=== PATIENT | male | born 1980 | race Caucasian/White ===

== ENCOUNTER 2018-10-24 13:23 | Outpatient (REF) | payer MEDICAID, SELFPAY ==
[2018-10-24 21:01] LABS: Anion Gap 9.1 mmol/L (3-11); BUN 13 mg/dL (7-18); CO2 26.9 mmol/L (21.0-32.0); CREATININE 1.02 mg/dL (0.70-1.30); Chloride 105 mmol/L (98-107); Glucose 86 mg/dL (70-100); Potassium 4.4 mmol/L (3.5-5.1); Sodium 141 mmol/L (136-145)
[2018-10-24 21:13] LABS: Cholesterol 204 mg/dL (50-200); HDL Cholesterol 52 mg/dL (40-60); LDL CHOLESTEROL 138 mg/dL (<100); Triglyceride 93 mg/dL (30-150)
== END 2018-10-24 13:43 ==
LOC: NCHCN 13:23
PROVIDERS: PCP Internal Medicine; Visit Provider Internal Medicine
DX: I10 Essential (primary) hypertension (principal)
CPT/HCPCS: 80048; 80061; 83721

== ENCOUNTER 2019-07-27 12:13 | Outpatient (REF) | payer MEDICAID, SELFPAY ==
[2019-07-27 21:47] LABS: Anion Gap 10.9 mmol/L (3-11); BUN 12 mg/dL (7-18); CO2 26.1 mmol/L (21.0-32.0); CREATININE 0.99 mg/dL (0.70-1.30); Chloride 105 mmol/L (98-107); Glucose 135 mg/dL (70-100); Potassium 4.1 mmol/L (3.5-5.1); Sodium 142 mmol/L (136-145)
== END 2019-07-27 12:33 ==
LOC: NCHCN 12:13
PROVIDERS: PCP Internal Medicine; Visit Provider Internal Medicine
DX: I10 Essential (primary) hypertension (principal)
CPT/HCPCS: 80048

== ENCOUNTER 2021-03-27 18:47 | Outpatient (REF) | payer MEDICAID, SELFPAY ==
[2021-03-27 21:50] LABS: BUN 16 mg/dL (7-18); CREATININE 1.1 mg/dL (0.70-1.30); Chloride 107 mmol/L (98-107); Glucose 99 mg/dL (74-106); Potassium 3.9 mmol/L (3.5-5.1); Sodium 144 mmol/L (136-145)
== END 2021-03-27 18:48 | disposition home or self-care (01) ==
LOC: NCHCN 18:47
PROVIDERS: PCP Internal Medicine; Visit Provider Internal Medicine
DX: I10 Essential (primary) hypertension (principal)
CPT/HCPCS: 80048

== ENCOUNTER 2021-10-28 17:27 | Emergency (ER) | payer MEDICAID, SELFPAY ==
[2021-10-28] VITALS (64 sets, daily range): BP systolic 136–163; BP diastolic 83–99; PULSE 59–84; RESP 8–27; TEMP 37; O2SAT 96–100
--- NOTE | 2021-10-28 17:30 | RT.EKG_ITS ---
APPROVED REPORT Exam: Resting ECG Reason for Exam: Chest pain Patient Location: E HR:77 bpm ECG Measurements Heart Rate 77 AXIS ME 201 P 31 QRSd 89 QRS 18 QT 363 T 23 QTc 412 Conclusion Sinus rhythm...normal P axis, V-rate 60- 99. Sinus. Normal axis. No STEMI. I have reviewed and interpreted ECG and agree with software generated interpretation.
--- NOTE | 2021-10-28 17:45 | DI.CT_ITS ---
Exam(s) CT CHEST PE CTA EXAM: CT CHEST PE CTA CLINICAL HISTORY: Chest Pain, R/OPE. TECHNIQUE: Imaging Protocol: Axial CT angiography was performed with multi-slice acquisition and mu lti-planar and/or 3D reconstructions. CONTRAST MATERIAL: Intravenous: Omnipaque 350 Contrast volume:100 mL COMPARISON: CR CHEST 2 VIEWS PA,LAT from 11/21/2012 FINDINGS: Tracheobronchial tree: Patent where visualized. Pulmonary parenchyma: No consolidation or dominant measurable mass. No architectural distortion. Pulmonary Arteries: No evidence of filling defect to suggest pulmonary emboli. Mediastinum and Samantha: No dominant adenopathy or fluid collection. The esophagus is unremarkable. Visualized thyroid gland: Unremarkable. Pleura: No effusion or pneumothorax. Heart: The heart is not dilated. No coronary artery calcifications are seen. No pericardial effusion. Aorta: Thoracic aorta non-dilated. No evidence of dissection. Upper abdomen: Unremarkable. Soft tissues: Bilateral gynecomastia. Bones: Within normal limits for the patient's age. IMPRESSION: No evidence of pulmonary embolism, thoracic aortic dissection or aneurysm. RADIATION DOSE DELIVERED: 516.06mGy.cm Total DLP DATA REPOSITORY: All CT scans at this facility are submitted to the National Radiology Data Registry (NRDR) Dose Index Registry (DIR) with the [employer] (ACR). RADIATION OPTIMIZATION: All CT scans at this facility use at least one of these dose optimization te chniques: automated exposure control; mA and/or kV adjustment per patient size (includes targeted exa ms where dose is matched to clinical indication); or iterative reconstruction.
--- NOTE | 2021-10-28 17:53 | ED.GENADUL_ITS ---
Discharge Plan Disposition Patient Disposition: HOME Condition: Stable Discharge Details Clinical Impression: Back pain with radiation Primary Care Provider: Dimitri Koch ED Provider: Nikki Nesbitt Home Meds and New Rx's Prescriptions: Continued naproxen 250 MG tablet 500 mg PO BID RF: 0 diltiazem HCl 240 mg capsule,extended release 24 hr 240 mg PO HS RF: 0 zolpidem 5 mg tablet 5 mg PO PRN PRNRF: 0 Vyvanse 20 mg capsule 20 mg PO DAILY RF: 0 Discharge Instructions Instructions: Back Pain (ED) Additional Instructions: At this time cardiac work-up largely within normal limits. No evidence of blood clot in her lung, pneumonia or any other abnormality. Please take Tylenol or Ibuprofen with food every 4-6 hours as needed for pain and swelling. Take the muscle relaxer as directed. Alternate ice and heat. Follow up with primary care provider in 3-5 days. Return to ED sooner if any worsening or concerns. Increase oral fluids. Referrals: Dimitri Koch MD [Primary Care Provider] - 1 week Medical Decision Making 41-year-old male presents to the ER with chief complaint of mid thoracic back pain which is intermittent that radiates bilaterally around to the front of his chest. He reports that this started yesterday. He denies any shortness of breath, nausea vomiting diarrhea he denies any cough or fever. He reports he took naproxen. He does have a history of fibromyalgia and costochondritis but he states that this pain is different never had this pain before. He is a non- smoker denies any drugs or alcohol. EKG was reviewed by Dr. Cade ER attending, please see her official report and review. Old EKG available. Cardiac work-up ordered, discussed CT chest which patient agrees to. Differential diagnosis includes but not limited to musculoskeletal pain, coronary artery disease, TX, PE, pneumonia. Labs are largely unremarkable. CTA CHEST W: FINDINGS: Pulmonary arteries: Normal. No pulmonary emboli. Aorta: Unremarkable. No aortic aneurysm. No aortic dissection. Lungs: Lungs are clear. No significant consolidation or ground-glass opacity. No significant endobronchial mucus. Pleural spaces: Unremarkable. No pneumothorax. No pleural effusion. Heart: Unremarkable. No cardiomegaly. No pericardial effusion. Lymph nodes: Unremarkable. No enlarged lymph nodes. Bones/joints: Unremarkable. No acute fracture. Visualized portions of the scapula are intact and normal. There are no rib fractures or rib lesions observed. Negative for compression fracture in the thoracic spine. Mild disc space narrowing and osteophyte formation noted. Soft tissues: Moderate gynecomastia. Posterior paraspinal musculature is unremarkable. IMPRESSION: 1. Negative for pulmonary embolism. 2. No significant pneumonia. Dictated and Authenticated by: Iban Mendoza MD Patient given 2-1/2 mg of Valium and 30 mg of Toradol. This improved his pain down to a 1 out of 10. We will send patient home with a 2 mg p.o. Valium and instructed on taking Tylenol and ibuprofen. Strict return instructions discussed. HPI General Mode of arrival: ambulatory . Date/Time Provider Initiated Documentation: 10/28/21 17:30 . Limitations to Documentation: no limitations . Information obtained by: patient, RN notes reviewed and old records reviewed . HPI Narrative: 41-year-old male presents to the ER with chief complaint of mid thoracic back pain which is intermittent that radiates bilaterally around to the front of his chest. He reports that this started yesterday. He denies any shortness of breath, nausea vomiting diarrhea he denies any cough or fever. He reports he took naproxen. He does have a history of fibromyalgia and costochondritis but he states that this pain is different never had this pain before. He is a non-smoker denies any drugs or alcohol. Related Data Home Medications Medication Instructions Recorded Confirmed naproxen 500 mg PO BID tab-cap 04/21/18 10/28/21 Vyvanse 20 mg PO DAILY 10/28/21 10/28/21 diltiazem HCl 240 mg PO HS 10/28/21 10/28/21 zolpidem 5 mg PO PRN PRN 10/28/21 10/28/21 Allergies Allergy/AdvReac Type Severity Reaction Status Date / Time bupropion HCl Allergy Unknown Unverified 10/28/21 17:39 [From Wellbutrin] penicillin V potassium Allergy Unknown Unverified 10/28/21 17:39 [From Pen-Vee K] General Stated Complaint: Chest/Rib ANITA: 2 Review of Systems All systems reviewed & are unremarkable except as noted in HPI and below Cardiovascular Cardiovascular: Reports chest pain and Denies dyspnea Respiratory Respiratory: Denies dyspnea Gastrointestinal Gastrointestinal: Denies abdominal pain, Denies diarrhea, Denies nausea and Denies vomiting Musculoskeletal Musculoskeletal: Reports back pain PFSH All Active Problems (Updated 10/28/21 @ 19:42 by Nikki Nesbitt) Back pain with radiation (Acute) Social History Smoking/Tobacco Use Status: Never Smoking risk assessment performed?: Yes Substance use type: does not use Do you feel safe at home: Yes Do you feel safe in your relationship?: Yes Exam Narrative Exam Narrative: Constitutional: Alert and oriented x3. Appears stated age. Normal body habitus. Head: Normocephalic, no trauma. Eyes: Pupils PERRL, Red reflex noted, EOM's intact. Eyelids symmetrical without lesions, discharge, or swelling. ENT: Bilateral TM's WNL, External ear normal to inspection, no mastoid TTP, swelling, or erythema, Nasal turbinates WNL, no nasal discharge. Normal dentition, Posterior pharynx WNL, no exudate. Chest: RRR, Normal S1, S2, distal pulses intact. Resp: Lungs clear to auscultation bilaterally, no wheezes, rales, or rhonchi. Abdomen: Soft, non-distended, Normoactive bowel sounds all 4 quads. Musculoskeletal: Normal gait, 5/5 strength to all four extremities. Skin: No suspicious rashes or lesions. Capillary refill less than 2 sec. Neurologic: Cranial nerves II-XII intact. Alert and oriented x 3. Motor: No deficits noted. Sensory: Intact bilaterally all 4 extremities. Reflexes: DTR's intact bilaterally.. Hematologic/Lymphatic: No ecchymosis, no lymphadenopathy. Course Vital Signs Vital signs: Vital Signs Temperature 37 C 10/28/21 17:33 Pulse 75 10/28/21 17:33 Respiratory Rate 19 10/28/21 17:33 Blood Pressure 163/93 H 10/28/21 17:33 Pulse Oximetry 99 10/28/21 17:33 Temperature 37 C 10/28/21 17:33 Temperature Source Temporal Artery Scan 10/28/21 17:33 Pulse 75 10/28/21 17:33 Respiratory Rate 19 10/28/21 17:33 Respiratory Effort 10/28/21 17:47 Blood Pressure 163/93 H 10/28/21 17:33 Blood Pressure Position Sitting 10/28/21 17:33 Pulse Oximetry 99 10/28/21 17:33 Oxygen Delivery Method Room Air 10/28/21 17:33 Oxygen Flow Rate 0 10/28/21 17:33
[2021-10-28 17:54] LABS: Abs Immature Grans 0.03 10^3/uL (0.0-0.06); Absolute Basophil Count 0.07 10^3/uL (0.0-0.2); Absolute Eosinophil Count 0.21 10^3/uL (0.0-0.7); Absolute Lymphocyte Count 1.63 10^3/uL (1.2-3.4); Absolute Monocyte Count 0.49 10^3/uL (0.1-0.8); Absolute Neutrophil Count 6.08 10^3/uL (1.2-6.7); Basophils % 0.8; Eosinophils % 2.5; HCT 51.9 % (40.0-50.0); HGB 17.7 g/dL (13.5-17.5); Immature Grans % 0.4; Lymphocytes % 19.2; MCH 31.7 pg (27.0-33.0); MCHC 34.1 % (32.0-36.0); MCV 92.8 fL (80-95); MPV 10.6 fL (8.0-11.0); Monocytes % 5.8; Neutrophils % 71.3; Nucleated RBC 0 %; Platelet Count 257 10^3/uL (130-400); RBC 5.59 10^6/uL (4.36-5.78); RDW 12.1 % (11.8-14.1); RDW-SD 41.5 fL; WBC 8.51 10^3/uL (4.4-10.8)
[2021-10-28 18:09] LABS: ALT 33 U/L (16-63); AST 15 U/L (15-37); Albumin 4.6 g/dL (3.4-5.0); Alkaline Phosphatase 79 U/L (46-116); Anion Gap 10.9 mmol/L (3-11); BUN 10 mg/dL (7-18); Bilirubin, Total 0.5 mg/dL (0.2-1.0); CO2 26.1 mmol/L (21.0-32.0); CREATININE 1.2 mg/dL (0.70-1.30); Calcium 9.1 mg/dL (8.5-10.1); Chloride 105 mmol/L (98-107); Glucose 102 mg/dL (74-106); Magnesium 2.1 mg/dL (1.8-2.4); Potassium 3.8 mmol/L (3.5-5.1); Sodium 142 mmol/L (136-145); Total Protein 8.4 g/dL (6.4-8.2); Troponin I < 50 ng/L (<or=60)
[2021-10-28] MEDS: Omnipaque 350 MG/ML 100 ML BTL IJ (18:39)
--- NOTE | 2021-10-28 18:41 | SUR.PHASEI ---
Pt in CT at present.
--- NOTE | 2021-10-28 18:49 | SUR.PHASEI ---
Report given to Verna WARE
--- NOTE | 2021-10-28 19:12 | DI.VRAD_ITS ---
PROCEDURE INFORMATION: Exam: CTA Chest With Contrast Exam date and time: 10/28/2021 5:57 PM Age: 41 years old Clinical indication: Patient HX: Chest pain, bilat scapular TECHNIQUE: Imaging protocol: Computed tomographic angiography of the chest with contrast. 3D rendering (Not supervised by radiologist): MIP and/or 3D reconstructed images were created by the technologist. COMPARISON: No relevant prior studies available. FINDINGS: Pulmonary arteries: Normal. No pulmonary emboli. Aorta: Unremarkable. No aortic aneurysm. No aortic dissection. Lungs: Lungs are clear. No significant consolidation or ground-glass opacity. No significant endobronchial mucus. Pleural spaces: Unremarkable. No pneumothorax. No pleural effusion. Heart: Unremarkable. No cardiomegaly. No pericardial effusion. Lymph nodes: Unremarkable. No enlarged lymph nodes. Bones/joints: Unremarkable. No acute fracture. Visualized portions of the scapula are intact and normal. There are no rib fractures or rib lesions observed. Negative for compression fracture in the thoracic spine. Mild disc space narrowing and osteophyte formation noted. Soft tissues: Moderate gynecomastia. Posterior paraspinal musculature is unremarkable. IMPRESSION: 1. Negative for pulmonary embolism. 2. No significant pneumonia. Dictated and Authenticated by: Iban Mendoza MD. Ordering:KASSIE Jordan MD
[2021-10-28] MEDS: Ketorolac 30 MG/ML VIAL IVP (19:28)
[2021-10-28] MEDS: diazePAM 10 MG/2 ML SYR 2.5 MG IVP (19:30)
[2021-10-28] MEDS: diazePAM 2 MG TAB PO (19:55)
== END 2021-10-28 19:57 | disposition home or self-care (01) ==
PROVIDERS: Emergency Provider Registered Nurse Emergency; PCP Internal Medicine
DX: M54.6 Pain in thoracic spine (principal); R07.9 Chest pain, unspecified
CPT/HCPCS: 36415; 71275; 80053; 93005; 96374; 96375; 99285; 83735; 84484; 85025; 93010; 99283; J1885; J3360; J3490

== ENCOUNTER 2022-01-16 14:14 | Emergency (ER) | payer MEDICAID, SELFPAY ==
[2022-01-16 14:25] VITALS: BP 142/80; PULSE 63; RESP 16; TEMP 36.7; O2SAT 98
--- NOTE | 2022-01-16 15:45 | DI.RAD_ITS ---
Exam(s) XR THUMB LT EXAM: XR THUMB LT CLINICAL HISTORY: laceration. TECHNIQUE: 2D digital imaging was performed. Three views. COMPARISON: None. FINDINGS: BONES: No acute fracture is present. No bony destructive lesion is seen. JOINTS: No dislocation present. SOFT TISSUE: Normal. No foreign body. IMPRESSION: No evidence of acute fracture, dislocation, or subluxation. DATA REPOSITORY: RADIATION DOSE DELIVERED:
[2022-01-16] MEDS: ceFAZolin 2 GM/50 ML BAG IVPB (16:32)
--- NOTE | 2022-01-16 17:03 | ED.GENADUL_ITS ---
Discharge Plan Disposition Patient Disposition: HOME Condition: Stable Discharge Details Clinical Impression: Laceration of left thumb with tendon involvement Primary Care Provider: Dimitri Koch ED Provider: Won Oliva Home Meds and New Rx's Prescriptions: No Action naproxen 250 MG tablet 500 mg PO BID 0RF diltiazem HCl 240 mg capsule,extended release 24 hr 240 mg PO HS 0RF Label Comments: TAKE ONE CAPSULE BY MOUTH EVERY DAY Vyvanse 20 mg capsule 20 mg PO DAILY 0RF Label Comments: TAKE ONE CAPSULE BY MOUTH EVERY DAY doxepin 3 mg tablet 3 mg PO HS 0RF Label Comments: TAKE ONE TABLET BY MOUTH AT BEDTIME acetaminophen 500 mg tablet 500 mg PO Q6H PRN PRN (Reason: pain) Qty: 40 3RF hydrocodone-acetaminophen 5-325 mg tablet 1 tab PO Q6H PRN (Reason: pain) Qty: 4 0RF Discharge Instructions Instructions: Laceration Without Closure (ED), Tendon Laceration (ED) Additional Instructions: It is important that you keep splinting in place and follow-up with orthopod. Please call their office tomorrow for arrangement of follow-up appointment. If you have any new or significant worsening of symptoms feel free to return to the emergency department for reassessment. It is important that you keep splinting and dressing clean and dry until orthopedics removes this. Stand Alone Forms: Work Release Referrals: [facility] [Provider Group] (Please call the office tomorrow morning.) Discharge Data Discharge Date/Time-TO BE ENTERED AT DEPARTURE: 01/16/22 17:53 Medical Decision Making Patient presenting to the emergency department for injury to left thumb. Chana rain reports prior to arrival he was attempting to use a hatchet to cut tingling and struck his left thumb. Patient is primarily right-handed. Patient has approximately a 1 to 1-1/2 cm laceration to the proximal phalanx of the left thumb but of major concern is that patient has no distal extensor movement to the digit. Cap refill is intact and sensation is intact. Tetanus was updated due to patient being unaware of his last tetanus. Called and spoke with Dr. Newman whom recommended radiological imaging and 2 g of Ancef. He requested that Dr. Dietrich be paged to see if there is availability for OR repair today. Did speak with patient about cross-reactivity of penicillin and cephalosporins. Patient reported that he has been on amoxicillin and other related medications and never had allergic reaction. Given this I feel comfortable giving patient Ancef and prescribing Keflex for outpatient. Spoke to Dr. Dietrich and due to OR availability was unable to repair today but recommended that patient have loose or just cover dressing to the wound with splinting in place. Patient will be followed up in the office from one of the orthopods. Patient is agreeable to this plan. Imaging Data Radiologic Study: Imaging: X-Ray Radiologist's impression: IMPRESSION: Soft tissue swelling without acute bony findings Date: 01/16/22 Time: 17:18 Note: Patient seen, examined, and discussed with GRACIE Oliva. I agree with treatment plan as discussed/documented. HPI General Mode of arrival: ambulatory . Date/Time Provider Initiated Documentation: 01/16/22 15:31 . Limitations to Documentation: no limitations . Information obtained by: patient . History of Present Illness 41 year old M presents to the emergency department with the chief complaint of left thumb laceration, described as moderate, with intensity rated at 7. Quality is described as aching, and is localized to the left and upper extremity. Patient reports no radiation. Patient started experiencing this hour(s) (1) and it has been constant. improves with No relieving factors improve symptom(s), Movement worsens symptoms . Patient notes no other symptoms.. Patient did receive the following treatments prior to arrival, none Related Data Home Medications Medication Instructions Recorded Confirmed naproxen 250 mg tablet 500 mg PO BID tab-cap 04/21/18 01/18/22 diltiazem HCl 240 mg capsule,24 240 mg PO HS 10/28/21 01/18/22 hr,extended release lisdexamfetamine 20 mg capsule 20 mg PO DAILY 10/28/21 01/18/22 (Vyvanse) acetaminophen 500 mg tablet 500 mg PO Q6H PRN PRN #40 tab 01/18/22 doxepin 3 mg tablet 3 mg PO HS 01/18/22 01/18/22 hydrocodone 5 mg-acetaminophen 325 1 tab PO Q6H PRN #4 tab 01/18/22 mg tablet Previous Rx's Medication Instructions Recorded acetaminophen 500 mg tablet 500 mg PO Q6H PRN PRN #40 tab 01/18/22 hydrocodone 5 mg-acetaminophen 325 1 tab PO Q6H PRN #4 tab 01/18/22 mg tablet Allergies Allergy/AdvReac Type Severity Reaction Status Date / Time bupropion HCl Allergy Unknown Unverified 01/18/22 11:41 [From Wellbutrin] penicillin V potassium Allergy Unknown Unverified 01/16/22 14:28 [From Pen-Vee K] General Stated Complaint: Laceration ANITA: 4 Review of Systems Cardiovascular Cardiovascular: Denies syncope and Denies lightheadedness Musculoskeletal Musculoskeletal: Reports as per HPI, Denies deformity, Denies joint swelling, Reports limited range of motion and Denies numbness Integumentary/Breasts Skin/Breast: Reports as per HPI Neurologic Neurologic: Denies syncope, Denies numbness and Denies paresthesias Hematologic/Lymphatic Hematologic/Lymphatic: Denies easy bleeding PFSH All Active Problems Laceration of left thumb with tendon involvement (Acute) Medical History ADHD 12/21/16 Anxiety Chest pain, atypical 11/2012, 10/2021 Depression Fibromyalgia 07/29/15 Hypertension 05/02/2015 Low back pain 05/23/18 Obesity Obstructive sleep apnea hypopnea, moderate 10/12/21 sleep study Paresthesia of hand right hand, 10/24/18 Reactive depression (situational) Sleep disturbance 12/28/19 Tobacco use Surgical History (Updated 01/18/22 @ 11:41 by Suma Mueller) History of tonsillectomy Social History Smoking/Tobacco Use Status: Former Tobacco Use Quit Date: 11/05/01 Tobacco: How many years used: 4 Smoking risk assessment performed?: Yes Alcohol Intake: current Alcohol Intake frequency: holidays/special occasions only Alcohol type: beer and hard liquor Drug use: Never Substance use type: does not use Do you feel safe at home: Yes Do you feel safe in your relationship?: Yes Exam Const General: cooperative and no acute distress Orientation: alert, awake and oriented x3 Limitations: mental status not altered Resp Effort & Inspection: normal respiratory effort and able to speak in complete sentences Cardio Rate: regular rate Rhythm: regular rhythm Neuro General: patient alert, patient awake, patient oriented x3, gait normal, tone normal and normal light touch, pain and propioception Sensory Exam: no sensory deficits noted Extrem General: normal exam except as noted Left upper extremity: hand Details: normal capillary refill, tendon exam abnormal thumb extensor tendon Location: funtion absent, tenderness Location: of the thumb, no swelling and laceration thumb dorsal aspect proximal Details: linear, actively bleeding and with sensation intact; Negative for no pulsatile bleeding Course Vital Signs Vital signs: Vital Signs Temperature 36.7 C 01/16/22 14:25 Pulse 63 01/16/22 14:25 Respiratory Rate 16 01/16/22 14:25 Blood Pressure 142/80 H 01/16/22 14:25 Pulse Oximetry 98 01/16/22 14:25 Temperature 36.7 C 01/16/22 14:25 Temperature Source Skin 01/16/22 14:25 Pulse 63 01/16/22 14:25 Respiratory Rate 16 01/16/22 14:25 Respiratory Effort 01/16/22 14:25 Blood Pressure 142/80 H 01/16/22 14:25 Blood Pressure Position Sitting 01/16/22 14:25 Pulse Oximetry 98 01/16/22 14:25 Oxygen Delivery Method Room Air 01/16/22 14:25 Oxygen Flow Rate 0 01/16/22 14:25 Pain Level 4 01/16/22 15:17
--- NOTE | 2022-01-16 17:37 | DI.VRAD_ITS ---
PROCEDURE INFORMATION: Exam: XR Left Finger(s) Exam date and time: 01/16/2022 5:15 PM Age: 41 years old Clinical indication: Injury or trauma; Other: Hit with an axe; Blunt trauma (contusions or hematomas); Finger; Left; Injury date: 01/16/2022; Injury details: Chopping wood PT states he hit his thumb TECHNIQUE: Imaging protocol: XR Left fingers. Views: Minimum 2 views. COMPARISON: No relevant images were readily available for comparison purposes. FINDINGS: Bones/joints: No acute fracture or dislocation. There is prominent bony irregularity seen about the ulnar styloid which is suspected to be related to old injury or fracture. Soft tissues: No radiopaque foreign body. Mild soft tissue swelling. IMPRESSION: Soft tissue swelling without acute bony findings. Dictated and Authenticated by: Dimitri Browne MD. Ordering:RICHI Upton MD
== END 2022-01-16 17:53 | disposition home or self-care (01) ==
PROVIDERS: Emergency Provider Nurse Practitioner Family; PCP Internal Medicine
DX: S61.012A Laceration without foreign body of left thumb without damage to nail, initial encounter (principal); W27.0XXA Contact with workbench tool, initial encounter
CPT/HCPCS: 90471; 96365; 99284; 73140; J0690

== ENCOUNTER 2022-01-18 11:32 | Day surgery (SDC) | payer MEDICAID, SELFPAY ==
[2022-01-18 11:44] VITALS: BP 144/92; PULSE 90; RESP 16; TEMP 37.1; O2SAT 99
[2022-01-18] MEDS: Lactated Ringers 1,000 ML 80 ML IV (12:10)
[2022-01-18] MEDS: ceFAZolin 2 GM/50 ML BAG IVPB (13:03)
[2022-01-18] MEDS: Sodium Bicarbonate 50 MEQ/50 ML VIAL (13:52)
[2022-01-18 14:03] VITALS: BP 153/96; PULSE 69; RESP 16; TEMP 37.1; O2SAT 98
--- NOTE | 2022-01-18 14:05 | W.PM.DSUDISC ---
Discharge Plan Disposition Patient Disposition: HOME Condition: Good Discharge Details Reason For Visit: Tendon repair Attending Provider: Robbi Dietrich Primary Care Provider: Dimitri Koch Home Meds and New Rx's Prescriptions: New acetaminophen 500 mg tablet 500 mg PO Q6H PRN PRN (Reason: pain) Qty: 40 3RF hydrocodone-acetaminophen 5-325 mg tablet 1 tab PO Q6H PRN (Reason: pain) Qty: 4 0RF Continued naproxen 250 MG tablet 500 mg PO BID 0RF diltiazem HCl 240 mg capsule,extended release 24 hr 240 mg PO HS 0RF Label Comments: TAKE ONE CAPSULE BY MOUTH EVERY DAY Vyvanse 20 mg capsule 20 mg PO DAILY 0RF Label Comments: TAKE ONE CAPSULE BY MOUTH EVERY DAY cephalexin 500 mg tablet 500 mg PO QID 3 Days Qty: 12 0RF Label Comments: 01/18/22 PT has not started doxepin 3 mg tablet 3 mg PO HS 0RF Label Comments: TAKE ONE TABLET BY MOUTH AT BEDTIME Discharge Instructions Additional Instructions: Thumb Tendon Repair Discharge Instructions Activity: You should keep the hand/thumb elevated as much as possible for the first few days. You may use the other fingers as tolerated but avoid trying to do too much too soon. You may perform light activities with the splint in place. Dressing/Cast: Your splint should stay in place at all times. Do NOT get it wet. You may loosen the LAMAR wrap if you feel it is too tight and then rewrap more loosely. Medications: - You should take Tylenol and Naproxen or ibuprofen for baseline pain control. - You have Hydrocodone for breakthrough pain. - You may apply ice over the thumb. Follow-up: 10-14 days for wound check, suture removal and placement into a thumb spica EXOS or new splint for 4 weeks. Referrals: Robbi Dietrich MD [ [facility] STAFF PHYSICIAN] - Equipment/Supplies: Splint Activity:: Elevate Remove Dressings/Wound Care:: Do Not Remove Shower/Bathe:: Cover Diet:: As Tolerated Discharge Orders Discharge Orders: Discharge Order (Routine); Ordered 01/18/22 Ordered By: Robbi Dietrich
--- NOTE | 2022-01-18 14:18 | W.PM.OP ---
Date of service: 01/18/22 Time of Service: 14:00 Operative Note Operative Note DATE OF PROCEDURE: 01/18/22 PRE-OP DIAGNOSIS: Left Thumb Laceration with EPL involvement POST-OP DIAGNOSIS: same PROCEDURE: Left Thumb Laceration Irrigation and Debridement with LEFT EPL tendon repair SURGEON: Robbi Dietrich BILLING MACHINE OPERATOR: Homer Richmond ANESTHESIA TYPE: Local By Surgeon Refer to Anesthesia Record ESTIMATED BLOOD LOSS: 5 PATHOLOGY: none sent COMPLICATIONS: None Patient was transported to: same day Patient's condition: stable Indications: Judah is a 41-year-old who was working with a hatchet when he slipped and cut the dorsum of his left thumb. He had immediate deformity of the thumb and a tendon laceration, EPL tendon, was diagnosed in the emergency department. I was called about his case and I discussed that with him over the phone recommended urgent debridement with repair of the tendon. Given his young age and active lifestyle nonsurgical treatment was not a viable option. Therefore, I recommended surgery. I discussed the risk of the procedure to include, but not limited to, bleeding, infection, pain, stiffness, retear, damage to nerves or vessels, need for repeat procedures. Despite these risks, the patient elected to proceed. Findings: There was a clean 1 cm laceration slightly oblique at the middle portion of the proximal phalanx of the left thumb. This laceration went directly down to bone and the EPL tendon was easily identified with clean cut surfaces. The wound was thoroughly irrigated and the tendon was reapproximated with a cruciate style 4 core repair using 2-0 FiberWire. This was also reinforced with #5-0 nylon. Procedure Description: Judah was greeted in the preoperative holding area where the correct side was identified and marked. The consent was reviewed with the patient and signed. All questions were answered. Judah was taken back to the operating room. The patient was placed into the supine position on the operating room table with the left arm on an arm board. All bony prominences were well padded. Cefazolin was administered for prophylactic antibiotics. The left arm was then prepped with Chloraprep and draped in a standard fashion with stockinette and extremity drape. A timeout to confirm correct identity, side and site, procedure, allergies, anesthesia, and medical concerns was performed. The surgical site was marked as a longitudinal extension of the laceration traveling proximally and distally from the laceration approximately 1 cm. A digital block was then performed using 2% lidocaine with epinephrine, buffered with sodium bicarbonate. Once this was fully set up the wound was inspected to make sure that we had complete anesthesia. I then extended this laceration as planned approximately 1 cm in either direction creating an S type incision overlying the wound of injury. There is no gross debris. No sign of infection. I thoroughly irrigated this area for better visualization. Blunt dissection was allowed to open up the skin flaps and evaluate the deeper tissues. The laceration appeared to go directly down to bone but there was no clear fracture of the bone itself. The tendon edges were easily identifiable and had clean-cut services. The proximal portion, which had retracted slightly underneath the soft tissues was pulled distally and pinned in place using a number 22-gauge needle. With this being held in place I then performed the repair of the tendon using a #2-0 FiberWire. This was done using a cruciate style repair. It was completed without difficulty and then tied with excellent reapproximation of the tendon. Once this was tied the knot was buried and sutures cut. I then had Judah move the thumb both in flexion and active extension. There was some mild gapping noted at the repair site, approximately 1 mm. It was not even throughout but at most was 1 mm. I therefore reinforced the repair using a #5-0 nylon. This excellently reapproximated the tendon edges. Once again was tested and showed no signs of gapping. The wound was thoroughly irrigated. The skin was closed with 4-0 nylon. The wound was dressed with Xeroform, 4 x 4's, web roll. A thumb spica splint was applied. He was then transferred back to same Day Surgery area in a stable condition suffering no known complication.
== END 2022-01-18 14:28 | disposition home or self-care (01) ==
PROVIDERS: PCP Internal Medicine; Visit Provider Student in an Organized Health Care Education/Training Program
PROC: (CPT 26418; principal; 2022-01-18 13:00)
DX: S61.012A Laceration without foreign body of left thumb without damage to nail, initial encounter (principal); S66.222A Laceration of extensor muscle, fascia and tendon of left thumb at wrist and hand level, initial encounter; X58.XXXA Exposure to other specified factors, initial encounter
CPT/HCPCS: 26418; J0690

== ENCOUNTER 2022-12-31 13:33 | Outpatient (REF) | payer MEDICAID, SELFPAY ==
[2022-12-31 21:16] LABS: HCT 48.8 % (40.0-50.0); MCH 31.3 pg (27.0-33.0); MCHC 34.8 % (32.0-36.0); MCV 90 fL (80-95); MPV 11.7 fL (8.0-11.0); Platelet Count 268 10^3/uL (130-400); RBC 5.44 10^6/uL (4.36-5.78); RDW 12.3 % (11.8-14.1); RDW-SD 39.8 fL; WBC 6.61 10^3/uL (4.4-10.8)
[2022-12-31 21:36] LABS: Hemoglobin A1C 5.1 % (<5.7)
[2022-12-31 21:55] LABS: ALT 37 U/L (16-63); AST 16 U/L (15-37); Albumin 4.2 g/dL (3.4-5.0); Alkaline Phosphatase 106 U/L (46-116); BUN 13 mg/dL (7-18); Bilirubin, Total 0.4 mg/dL (0.2-1.0); CREATININE 1.1 mg/dL (0.70-1.30); Calcium 8.8 mg/dL (8.5-10.1); Chloride 105 mmol/L (98-107); Estimated GFR 86.49 (mL/min/1.73m2); Glucose 122 mg/dL (74-106); Potassium 3.7 mmol/L (3.5-5.1); Sodium 140 mmol/L (136-145); Total Protein 7.6 g/dL (6.4-8.2)
== END 2022-12-31 13:34 | disposition home or self-care (01) ==
LOC: NCHCN 13:33
PROVIDERS: PCP Internal Medicine; Visit Provider Internal Medicine
DX: I10 Essential (primary) hypertension (principal); R11.0 Nausea; F90.9 Attention-deficit hyperactivity disorder, unspecified type; G47.33 Obstructive sleep apnea (adult) (pediatric); R73.09 Other abnormal glucose
CPT/HCPCS: 80053; 85027; 83036

== ENCOUNTER 2025-04-16 16:02 | Outpatient (REF) | payer OTHER, SELFPAY ==
[2025-04-16 15:57] LABS: ALT 25 U/L (16-63); AST 13 U/L (15-37); Albumin 4.3 g/dL (3.4-5.0); Alkaline Phosphatase 72 U/L (46-116); Anion Gap 11.3 mmol/L (3-11); BUN 13 mg/dL (7-18); Bilirubin, Total 0.6 mg/dL (0.2-1.0); CO2 25.7 mmol/L (21.0-32.0); Calcium 9.0 mg/dL (8.5-10.1); Calculated LDL 114 mg/dL (<100); Chloride 106 mmol/L (98-107); Cholesterol 185 mg/dL (<200); Estimated GFR 111.92 (mL/min/1.73m2); Glucose 89 mg/dL (74-106); HDL Cholesterol 57 mg/dL (>or=40); Potassium 4.1 mmol/L (3.5-5.1); Sodium 143 mmol/L (136-145); Total Protein 7.3 g/dL (6.4-8.2); Triglyceride 72 mg/dL (<150)
== END 2025-04-16 16:03 | disposition home or self-care (01) ==
LOC: NCHCN 16:02
PROVIDERS: PCP Family Medicine; Visit Provider Family Medicine
DX: I10 Essential (primary) hypertension (principal)
CPT/HCPCS: 80053; 80061

== ENCOUNTER 2025-06-21 06:37 | Outpatient (CLI) | payer OTHER, SELFPAY ==
[2025-06-21 15:31] LABS: Abs Immature Grans 0.00 10^3/uL (0.0-0.06); HCT 51.4 % (40.0-50.0); HGB 17.7 g/dL (13.5-17.5); Immature Grans % 0.0 %; MCH 31.7 pg (27.0-33.0); MCHC 34.4 % (32.0-36.0); MCV 92 fL (80-95); MPV 10.7 fL (8.0-11.0); Platelet Count 209 10^3/uL (130-400); RBC 5.59 10^6/uL (4.36-5.78); RDW 12.1 % (11.8-14.1); RDW-SD 41.1 fL; WBC 5.13 10^3/uL (4.4-10.8)
[2025-06-21 15:37] LABS: ESR 9 mm/hr (0-15)
[2025-06-21 15:59] LABS: C-Reactive Protein 1.70 mg/dL (<or=0.5)
[2025-06-21 16:03] LABS: RBC Morphology Normal
[2025-06-21 16:18] LABS: ALT 22 U/L (16-63); AST 16 U/L (15-37); Albumin 4.2 g/dL (3.4-5.0); Alkaline Phosphatase 77 U/L (46-116); Bilirubin, Direct 0.1 mg/dL (0.0-0.2); Bilirubin, Total 0.5 mg/dL (0.2-1.0); Total Protein 8.3 g/dL (6.4-8.2)
[2025-06-22 10:19] LABS: Lyme Ab w Rflx to Lyme Confirm Negative (Negative)
[2025-06-22 10:22] LABS: Syphilis Serology (RPR) Negative (Negative)
[2025-06-22 11:14] LABS: HIV-1/2 Ag & Ab Screen Negative (Negative)
== END 2025-06-21 06:38 | disposition home or self-care (01) ==
LOC: LBO 06-22 06:38
PROVIDERS: PCP Family Medicine; Visit Provider Optometrist
DX: B02.39 Other herpes zoster eye disease (principal)
CPT/HCPCS: 36415; 80076; 85652; 86812; 87389; 85025; 86038; 86140; 86431; 86592; 86618

== ENCOUNTER 2025-06-22 16:53 | Outpatient (REF) | payer OTHER, SELFPAY | END 2025-06-22 16:54 | disposition home or self-care (01) | LOC: LBN 16:53 | PROVIDERS: PCP Family Medicine; Visit Provider Optometrist | DX: H16.203 Unspecified keratoconjunctivitis, bilateral (principal) | CPT/HCPCS: 87015; 87207 ==